=== PATIENT | female | born 1955 | race Two or more races ===

== ENCOUNTER 2020-05-25 11:30 | Outpatient (CLI) | payer OTHER | END 2020-05-25 11:33 | disposition home or self-care (01) | LOC: MAMO-SONO 11:30 | PROVIDERS: ATTEND Internal Medicine | DX: Z12.31 Encounter for screening mammogram for malignant neoplasm of breast (principal); I10 Essential (primary) hypertension; N60.81 Other benign mammary dysplasias of right breast; N60.82 Other benign mammary dysplasias of left breast ==

== ENCOUNTER 2022-02-27 09:09 | Outpatient (CLI) | payer OTHER | END 2022-02-27 09:11 | disposition home or self-care (01) | LOC: TOM 09:09 | PROVIDERS: ATTEND Internal Medicine Hematology & Oncology | DX: R10.32 Left lower quadrant pain (principal); N28.9 Disorder of kidney and ureter, unspecified ==

== ENCOUNTER 2023-01-23 10:39 | Outpatient (CLI) | payer OTHER | END 2023-01-23 10:41 | disposition home or self-care (01) | LOC: SONOGRAMA 10:39 | PROVIDERS: ATTEND Obstetrics & Gynecology | DX: N94.89 Other specified conditions associated with female genital organs and menstrual cycle (principal) ==

== ENCOUNTER 2023-02-09 10:39 | Inpatient (IN) | payer OTHER ==
[~2023-02-09] VITALS: Ht 167.6 cm; Wt 72.6 kg
[2023-02-09] MEDS ORDERED: ST. JOSEPH ASPI81 M2 PO (11:15)
[2023-02-09] MEDS ORDERED: LOSARTAN POTASS50 MG PO (11:15)
[2023-02-09] MEDS ORDERED: DRAMAMINE LESS25 MG PO (11:16)
[2023-02-09] MEDS ORDERED: ZETIA10 MG PO (11:16)
[2023-02-09] MEDS ORDERED: PRILOSEC OTC20 MG PO (11:16)
[2023-02-09] MEDS ORDERED: ZYLOPRIM100 M1 PO (11:18)
[2023-02-11] MEDS ORDERED: VITAMIN D3250 MCG (10:33)
[2023-02-11] MEDS ORDERED: FAMOTIDINE20 MG (10:34)
== END 2023-02-12 14:17 | disposition home or self-care (01) | DRG 690 ==
LOC: ER 10:39 → SURG 17:29
PROVIDERS: ADMIT Internal Medicine; ATTEND Internal Medicine
PROC: BW21ZZZ Computerized Tomography (CT Scan) of Abdomen and Pelvis (ICD-10-PCS; principal; 2023-02-09)
DX: N39.0 Urinary tract infection, site not specified (principal); K57.32 Diverticulitis of large intestine without perforation or abscess without bleeding; Q61.3 Polycystic kidney, unspecified; K90.49 Malabsorption due to intolerance, not elsewhere classified; R10.32 Left lower quadrant pain; B96.29 Other Escherichia coli [E. coli] as the cause of diseases classified elsewhere; I12.9 Hypertensive chronic kidney disease with stage 1 through stage 4 chronic kidney disease, or unspecified chronic kidney disease; N18.9 Chronic kidney disease, unspecified; Z20.822 Contact with and (suspected) exposure to COVID-19

== ENCOUNTER 2023-11-19 07:09 | Outpatient (CLI) | payer OTHER ==
[~2023-11-19 07:09] MED LIST: DRAMAMINE LESS25 MG PO; FAMOTIDINE20 MG; LOSARTAN POTASS50 MG PO; PRILOSEC OTC20 MG PO; ST. JOSEPH ASPI81 M2 PO; VITAMIN D3250 MCG; ZETIA10 MG PO; ZYLOPRIM100 M1 PO
== END 2023-11-19 07:11 | disposition home or self-care (01) ==
LOC: NUCLEAR 07:09
PROVIDERS: ATTEND Internal Medicine Hematology & Oncology
DX: D35.1 Benign neoplasm of parathyroid gland (principal)
CPT/HCPCS: 78072; A9500

== ENCOUNTER 2024-06-17 10:17 | Outpatient (CLI) | payer OTHER ==
[~2024-06-17 10:17] MED LIST changes: +MECLIZINE HCL12.5 MG PO
== END 2024-06-17 10:22 | disposition home or self-care (01) ==
LOC: SONOGRAMA 10:17
PROVIDERS: ATTEND Obstetrics & Gynecology Gynecologic Oncology
DX: N83.202 Unspecified ovarian cyst, left side (principal); G89.3 Neoplasm related pain (acute) (chronic)

== ENCOUNTER 2024-07-15 10:50 | Outpatient (CLI) | payer OTHER | END 2024-07-15 11:02 | disposition home or self-care (01) | LOC: RAD 10:50 | DX: R51.9 Headache, unspecified (principal); N83.292 Other ovarian cyst, left side; N28.9 Disorder of kidney and ureter, unspecified ==